=== PATIENT | male | born 1985 | race Caucasian/White ===

== ENCOUNTER 2017-03-26 17:14 | Emergency (ER) | payer BC, OTHER ==
[~2017-03-26] VITALS: Ht 172.7 cm; Wt 88.5 kg
[2017-03-26] MEDS ORDERED: TYLE500T78 PO (17:19)
[2017-03-26] MEDS ORDERED: ULTR50TA PO (17:36)
[2017-03-26] MEDS ORDERED: CLEO300C2 PO (17:36)
[2017-03-26] MEDS ORDERED: IBUP80TA PO (17:36)
[2017-03-26 18:02] VITALS: BP 155/104
== END 2017-03-26 18:06 | disposition home or self-care (01) ==
LOC: M ED 17:48
DX: K03.9 Disease of hard tissues of teeth, unspecified (principal); Z88.0 Allergy status to penicillin; Z88.1 Allergy status to other antibiotic agents